=== PATIENT | female | born 1995 | race Caucasian/White ===

== ENCOUNTER 2018-08-29 07:16 | Emergency (ER) | payer OTHER, BC ==
[2018-08-29] MEDS ORDERED: KETOROLAC 30 MG/ML 1 ML VIAL IVP STA (08:26)
[2018-08-29] MEDS ORDERED: SODIUM CHLORIDE 0.9% 1,000 ML IV STA (08:26)
[2018-08-29] MEDS ORDERED: diphenhydrAMINE 50 MG/ML 1 ML VIAL IVP STA (08:26)
[2018-08-29] MEDS ORDERED: ONDANSETRON ODT 4 MG TAB PO STA (08:26)
[2018-08-29] MEDS ORDERED: ORPHENADRINE 30 MG/ML 2 ML VIAL IVP STA (08:27)
[2018-08-29] MEDS ORDERED: ONDANSETRON 4 MG/2 ML VIAL IVP STA (08:28)
--- NOTE | 2018-08-29 08:38 | ED ---
Headache HPI - General Chief Complaint: Headache Stated Complaint: Headache Time Seen by Provider: 08/29/18 08:00 Source: RN notes reviewed, old records reviewed Mode of arrival: ambulatory Limitations: no limitations - History of Present Illness Initial Comments: Patient is a 23-year-old female who presents emergency department today with a headache starting at 4 AM. Patient reports that she had a similar headache to this on . Patient states that she took some ibuprofen and took a bath at that time and her headache went away. She reports that she's had some occasional sore throat and mild illness earlier in the week. She states she has some of those symptoms at this time. She denies any fever. Patient reports that she has had multiple episodes of vomiting this morning. Her headache is worse with loud noises and bright light. She has no history of migraines or significant headache. - Related Data Previous Rx's Medication Instructions Recorded Butalbital/Aspirin/Caffeine 1 cap PO Q4H PRN 3 Days #12 cap 08/29/18 [Fiorinal 50-325-40 MG] Ondansetron Odt [Zofran Odt] 4 mg PO Q8HR PRN #12 tab 08/29/18 Allergies Allergy/AdvReac Type Severity Reaction Status Date / Time No Known Allergies Allergy Verified 08/29/18 07:40 Review of Systems ROS Statement: Those systems with pertinent positive or pertinent negative responses have been documented in the HPI. ROS Other: All systems not noted in ROS Statement are negative. Past Medical History Past Medical History: No Reported History History of Any Multi-Drug Resistant Organisms: None Reported Additional Past Surgical History / Comment(s): Nasal Past Psychological History: Depression Smoking Status: Never smoker Past Alcohol Use History: Occasional Past Drug Use History: None Reported General Exam - General Exam Comments Initial Comments: This is a 23-year-old female. Alert and oriented. Patient appears in no acute distress. Limitations: no limitations General appearance: alert, in no apparent distress Head exam: Present: atraumatic, normocephalic, normal inspection Eye exam: Present: normal appearance, PERRL, EOMI. Absent: scleral icterus, conjunctival injection, periorbital swelling ENT exam: Present: normal exam Neck exam: Present: normal inspection. Absent: tenderness, meningismus, lymphadenopathy Respiratory exam: Present: normal lung sounds bilaterally. Absent: respiratory distress, wheezes, rales, rhonchi, stridor Cardiovascular Exam: Present: regular rate, normal rhythm, normal heart sounds. Absent: systolic murmur, diastolic murmur, rubs, gallop, clicks GI/Abdominal exam: Present: soft, normal bowel sounds. Absent: distended, tenderness, guarding, rebound, rigid Extremities exam: Present: normal inspection, full ROM, normal capillary refill. Absent: tenderness, pedal edema, joint swelling, calf tenderness Back exam: Present: normal inspection Neurological exam: Present: alert, oriented X3, CN II-XII intact Psychiatric exam: Present: normal affect, normal mood Skin exam: Present: warm, dry, intact, normal color. Absent: rash Course Vital Signs 08/29/18 07:23 Temperature 97.7 F Pulse Rate 58 L Respiratory 20 Rate Blood Pressure 128/77 O2 Sat by Pulse 100 Oximetry Medical Decision Making - Lab Data Result diagrams: 08/29/18 08:00 08/29/18 08:00 Lab Results 08/29/18 08/29/18 08/29/18 Range/Units 08:00 08:00 08:00 WBC 5.4 (3.8-10.6) k/uL RBC 4.58 (3.80-5.40) m/uL Hgb 13.1 (11.4-16.0) gm/dL Hct 41.7 (34.0-46.0) % MCV 91.1 (80.0-100.0) fL MCH 28.7 (25.0-35.0) pg MCHC 31.5 (31.0-37.0) g/dL RDW 13.7 (11.5-15.5) % Plt Count 227 (150-450) k/uL Neutrophils % 74 % Lymphocytes % 18 % Monocytes % 5 % Eosinophils % 2 % Basophils % 0 % Neutrophils # 4.0 (1.3-7.7) k/uL Lymphocytes # 1.0 (1.0-4.8) k/uL Monocytes # 0.2 (0-1.0) k/uL Eosinophils # 0.1 (0-0.7) k/uL Basophils # 0.0 (0-0.2) k/uL Sodium 140 (137-145) mmol/L Potassium 4.0 (3.5-5.1) mmol/L Chloride 106 (98-107) mmol/L Carbon Dioxide 24 (22-30) mmol/L Anion Gap 10 mmol/L BUN 12 (7-17) mg/dL Creatinine 0.64 (0.52-1.04) mg/dL Est GFR (CKD-EPI)AfAm >90 (>60 ml/min/1.73 sqM) Est GFR (CKD-EPI)NonAf >90 (>60 ml/min/1.73 sqM) Glucose 100 H (74-99) mg/dL Calcium 9.8 (8.4-10.2) mg/dL Total Bilirubin 0.8 (0.2-1.3) mg/dL AST 28 (14-36) U/L ALT 25 (9-52) U/L Alkaline Phosphatase 52 (38-126) U/L Total Protein 7.5 (6.3-8.2) g/dL Albumin 4.3 (3.5-5.0) g/dL Urine HCG, Qual Not Detected (Not Detectd) - Radiology Data Radiology results: report reviewed Patient is a 23-year-old female who presents emergency murmur today with a headache and vomiting starting at 4 AM this morning, she reports vomiting. She does not describe thunderclap headache. Patient at this time has no neurological deficits. She otherwise appears well. She was given migraine cocktail with improvement of her symptoms. Discussed at this time under deficits, normal lab work and no meningeal signs concerned for meningitis. She was informed that we could do imaging studies such as a CAT scan. With chair decision-making parents and Patient agreed to avoid wasn't Patient to radiation at this time. Discussed that she would have any further headaches or anything persist that she should return and complete imaging at that time. Discussed the Patient to follow-up with primary care provider. We'll discharge the Patient with nausea medication and migraine medication. Disposition Clinical Impression: Migraine Disposition: HOME SELF-CARE Condition: Good Instructions: Acute Headache (ED) Additional Instructions: Patient advised to follow-up with primary care physician within the week. His the medication as prescribed. Return to emergency department if any alarming signs or symptoms occur. If any further headaches or persistent itching worsen please return for reevaluation. Prescriptions: Butalbital/Aspirin/Caffeine [Fiorinal 50-325-40 MG] 1 cap PO Q4H PRN 3 Days #12 cap PRN Reason: Migraine Headache Ondansetron Odt [Zofran Odt] 4 mg PO Q8HR PRN #12 tab PRN Reason: Nausea Is patient prescribed a controlled substance at d/c from ED?: No Referrals: Alejandro Joshi DO [Primary Care Provider] - 1-2 days Time of Disposition: 09:48
[2018-08-29 08:49] LABS: Basophils % (A) 0 %; Eosinophils # (A) 0.1 k/uL (0-0.7); Eosinophils % (A) 2 %; HCT 41.7 % (34.0-46.0); HGB 13.1 gm/dL (11.4-16.0); Lymphocytes % (A) 18 %; MCH 28.7 pg (25.0-35.0); MCHC 31.5 g/dL (31.0-37.0); MCV 91.1 fL (80.0-100.0); Monocytes # (A) 0.2 k/uL (0-1.0); Monocytes % (A) 5 %; Neutrophils % (A) 74 %; Platelet Count 227 k/uL (150-450); RBC 4.58 m/uL (3.80-5.40); RDW 13.7 % (11.5-15.5); WBC 5.4 k/uL (3.8-10.6)
[2018-08-29 09:01] LABS: ALT 25 U/L (9-52); AST 28 U/L (14-36); Albumin 4.3 g/dL (3.5-5.0); Alkaline Phosphatase 52 U/L (38-126); Anion Gap 10 mmol/L; Blood Urea Nitrogen 12 mg/dL (7-17); Calcium 9.8 mg/dL (8.4-10.2); Carbon Dioxide 24 mmol/L (22-30); Chloride 106 mmol/L (98-107); Glucose 100 mg/dL (74-99); Sodium 140 mmol/L (137-145); Total Bilirubin 0.8 mg/dL (0.2-1.3); Total Protein 7.5 g/dL (6.3-8.2)
[2018-08-29 09:44] LABS: Amorphous Sediment,Urine Moderate /hpf; Appearance,Urine Turbid (Clear); Bilirubin,Urine Negative (Negative); Blood,Urine Small (Negative); Color,Urine Yellow; Glucose,Urine (UA) Negative (Negative); Ketones,Urine Negative (Negative); Leukocyte Esterase,Urine Negative (Negative); Mucus,Urine Few /hpf; Nitrite,Urine Negative (Negative); Protein,Urine Trace (Negative); Squamous Epithelial Cell,Urine 1 /hpf (0-4); Urobilinogen,Urine <2.0 mg/dL (<2.0)
[2018-08-29] MEDS ORDERED: ONDANSETRON 4 MG ODT STARTER PACK 2 TAB BTL PO STA (09:50)
[2018-08-29 10:04] VITALS: BP 117/68; PULSE 55; RESP 16; TEMP 98.1
== END 2018-08-29 09:45 | disposition home or self-care (01) ==
LOC: EC 07:16
DX: G43.909 Migraine, unspecified, not intractable, without status migrainosus (principal); J02.9 Acute pharyngitis, unspecified
CPT/HCPCS: 99284; 96374; 96375 ×3; 96361; 36415; 80053; 85025; 81001; 81025; J1200; J2360; J2405; J1885; S0119

== ENCOUNTER → 2019-07-22 | Outpatient (CLI) | payer OTHER ==
[2019-07-22 09:09] VITALS: BP 130/86; PULSE 74; RESP 16; TEMP 98; BMI 22.7
--- NOTE | 2019-07-22 10:57 | P.HPOB ---
History of Present Illness H&P Date: 07/22/19 Chief Complaint: The patient is here for her routine gynecologic exam. This is a 24-year-old G0 with an LMP of 07/21/2019. The patient is currently abstaining from sexual intercourse, but will be going back down to [place] next month and will possibly be sexually active with her boyfriend who lives in [place]. She had been using oral contraception, but discontinued it since she moved back to [place]. She is requesting an IUD for control. She states she has read up on the IUD and the various types of IUDs. She is interested in something other than systemic hormones for control. Menses are regular every month. She is without gynecologic complaints. Review of Systems The patient's weight has been stable over the last year. About 2-3 years ago she did gain about 30 pounds but has lost most of that weight. She has changed her diet and no has become a vegetarian following a vegan diet. She denies respiratory, cardiac, or G.I. problems. 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 She has no other history of STDs. History of Any Multi-Drug Resistant Organisms: None Reported Additional Past Surgical History / Comment(s): Rhinoplasty for deviated septum. Past Psychological History: Depression Smoking Status: Never smoker Past Alcohol Use History: Occasional (One per day) Past Drug Use History: None Reported Additional History: She is single and has been with her boyfriend since about 2014. Her boyfriend lives in [place] and she now resides in [place]. 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 - Past Family History Father Family Medical History: Diabetes Mellitus Aunt Family Medical History: Cancer Additional Family Medical History / Comment(s): Breast cancer Medications and Allergies Home Medications Medication Instructions Recorded Confirmed Type Butalbital/Aspirin/Caffeine 1 cap PO Q4H PRN 3 Days #12 cap 08/29/18 07/22/19 Rx [Fiorinal 50-325-40 MG] Ondansetron Odt [Zofran Odt] 4 mg PO Q8HR PRN #12 tab 08/29/18 07/22/19 Rx Cyanocobalamin (Vitamin B-12) 1,000 mcg PO DAILY 07/22/19 07/22/19 History [Vitamin B-12] Allergies Allergy/AdvReac Type Severity Reaction Status Date / Time No Known Allergies Allergy Verified 07/22/19 09:02 Exam Vital Signs Temp Pulse Resp BP Pulse Ox 07/22/19 09:06 98.0 F 74 16 130/86 98 Intake and Output 07/21/19 07/22/19 07/22/19 22:59 06:59 14:59 Other: Weight 73.936 kg Height 5 feet 11 inches, weight 163 pounds, BMI 22.7. This is a well-developed well-nourished white female who is alert and oriented times 3 in no acute distress. HEENT: Within normal limits. NECK: Supple without mass or thyromegaly. CHEST AND LUNGS: Clear to auscultation. HEART: Regular rate and rhythm. BREASTS: Are without mass or discharge. AXILLARY EXAM: Negative for adenopathy. BACK: Negative for CVA tenderness. ABDOMEN: Soft, nontender, without palpable masses. PELVIC EXAM: External genitalia reveals some excess success hymenal tissue which is attached to the posterior periurethral area and to the left introitus. This is stable from her previous exams. It measures approximately 3.5 cm and appears benign. Cervix and vagina appear normal with small menstrual blood. There is no unusual discharge. There is no cervical motion tenderness. There is no evidence of prolapse. The uterus is midposition, nongravid size and nontender. There are no palpable adnexal masses or tenderness. RECTAL EXAM: Deferred EXTREMITIES: Nontender. IMPRESSION: 1. 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 Otherwise normal gynecologic exam. 2. Patient is requesting a hormone coated IUD. PLAN: 1. Pap smear was performed. 2. Self breast awareness was discussed with the patient. 3. GC and Chlamydia testing was obtained from the cervix. 4. We had a long discussion regarding control options. We have decided to restart the control pills. She has several packs of Loryna control pills which she has taken in the past. She states they are not . She will start taking them today since her period has just started. We will schedule her for an appointment at [facility] for Mirena IUD placement. We will try to schedule this at a time when she is on her menstrual period. 5. STD prevention was discussed. I have stressed the importance of limiting sexual partners and I have recommended that she strongly consider condom use if she is sexually active. 6. She was advised to return in one year for her annual well woman exam.
[2019-07-23 13:31] LABS: C. trachomatis,PCR Negative (Neg,Equiv); Chlamydia trachomatis Source Cervix; N. gonorrhoeae,PCR Negative (Neg,Equiv); Neisseria Source Cervix
== END ==
LOC: WWCWWP 08:55
PROVIDERS: ATTEND Obstetrics & Gynecology
DX: Z11.3 Encounter for screening for infections with a predominantly sexual mode of transmission (principal)
CPT/HCPCS: 87491; 87591

== ENCOUNTER → 2019-08-07 | Outpatient (CLI) | payer OTHER ==
[2019-08-07 08:08] VITALS: BP 113/76; PULSE 61; RESP 18; TEMP 98.1
--- NOTE | 2019-08-07 08:27 | P.PN ---
Progress Note - Text Progress Note Date: 08/07/19 The patient was here for her annual examination on 07/22/2019 and Pap smear was performed. The Pap smear came back as unsatisfactory. The patient is here for a repeat Pap smear. Physical exam: Vital signs blood pressure 113/76, height 5 feet 11 inches, weight 163 pounds, temperature 98.1, pulse 61, pulse oximeter 98%. This is a well-developed well-nourished white female who is alert and oriented 3 in no acute distress. Cervix and vagina appear normal. There is no unusual discharge. The cervix was slightly friable upon doing the Pap smear. Impression: Previous unsatisfactory Pap smear. Plan: Pap smear was performed.
--- NOTE | 2019-08-18 09:15 | P.PN ---
Progress Note - Text Progress Note Date: 08/18/19 OUTPATIENT FOLLOW-UP NOTE TEST(S)/RESULTS: the patient had a negative Pap smear done on 08/07/2019. GC and Chlamydia screening were negative on 07/22/2019. METHOD OF NOTIFICATION: a message was left on the patient's voice mail with these results. PATIENT COMMENTS: DIAGNOSIS: negative Pap smear and negative GC and chlamydia screening. DISCUSSION: PLAN: She was advised to return in one year for her annual well woman exam.
== END | disposition home or self-care (01) ==
LOC: WWCWWP 07:58
PROVIDERS: ATTEND Obstetrics & Gynecology
DX: Z53.9 Procedure and treatment not carried out, unspecified reason (principal)

== ENCOUNTER → 2022-01-20 | Outpatient (CLI) | payer OTHER ==
[2022-01-20 14:32] LABS: Basophils # (A) 0.04 X 10*3/uL (0.00-0.10); Basophils % (A) 0.7 %; Eosinophils # (A) 0.25 X 10*3/uL (0.04-0.35); Eosinophils % (A) 4.7 %; HCT 40.3 % (37.2-46.3); Immature Grans, Automated 0.2 %; Lymphocytes # (A) 1.88 X 10*3/uL (0.90-5.00); Lymphocytes % (A) 35.1 %; MCH 31.6 pg (27.0-32.0); MCHC 32.3 g/dL (32.0-37.0); MCV 98.1 fL (80.0-97.0); Mean Platelet Volume 11.6 fL (9.5-12.2); Monocytes % (A) 9.3 %; NRBC Per 100 WBC 0 /100 WBCS (0.0-0.0); Neutrophils # (A) 2.67 X 10*3/uL (1.80-7.70); Platelet Count 279 X 10*3/uL (140-440); RBC 4.11 X 10*6/uL (4.10-5.20); RDW 13.1 % (11.5-14.5); WBC 5.35 X 10*3/uL (4.50-10.00)
== END | disposition home or self-care (01) ==
LOC: LABPAT 08:02
PROVIDERS: ATTEND Obstetrics & Gynecology
DX: Z01.812 Encounter for preprocedural laboratory examination (principal); N89.8 Other specified noninflammatory disorders of vagina
CPT/HCPCS: 85025

== ENCOUNTER 2022-01-30 06:17 | Day surgery (SDC) | payer OTHER ==
[2022-01-25 14:57] VITALS: BMI 23.2
[~2022-01-30 06:17] MED LIST: DEXAMETHASONE SOD PHOSPHATE 4 MG/ML 1 ML VIAL IV ONE; LACTATED RINGERS 1,000 ML IV SCH; LIDOCAINE 1% (10MG/ML) FOR IV START INTRADERMA PRN; METOCLOPRAMIDE 5 MG/ML 2 ML VIAL IVP PRN; ONDANSETRON 4 MG/2 ML VIAL IVP ONE; SCOPOLAMINE 1 MG/72 HR PATCH TRANSDERM ONE
[2022-01-30] MEDS ORDERED: fentaNYL (PF) 50 MCG/ML 2 ML AMP ONE (08:29)
[2022-01-30] MEDS ORDERED: KETOROLAC 15 MG/ML 1 ML VIAL ONE (08:29)
[2022-01-30] MEDS ORDERED: MIDAZOLAM 2 MG/2 ML VIAL ONE (08:29)
[2022-01-30] MEDS ORDERED: GLYCOPYRROLATE 0.2 MG/ML 2 ML VIAL ONE (08:29)
[2022-01-30] MEDS ORDERED: ROCURONIUM 10 MG/ML (5 ML VIAL) IV ONE (08:29)
[2022-01-30] MEDS ORDERED: LIDOCAINE 2% INJ 20 MG/ML (2 ML VIAL) ONE (08:29)
[2022-01-30] MEDS ORDERED: PROPOFOL 10 MG/ML 20 ML VIAL IV ONE (08:29)
[2022-01-30] MEDS ORDERED: NEOSTIGMINE 1 MG/ML 10 ML VIAL ONE (08:29)
[2022-01-30] MEDS ORDERED: BUPIVACAINE (PF) 0.5% 30 ML VIAL SQ ONE ×2 (08:50)
--- NOTE | 2022-01-30 09:20 | P.OP ---
Date of Procedure: 01/30/22 Preoperative Diagnosis: 1. intrauterine device 2. hymeneal remnant number 3. desires permanent sterility Postoperative Diagnosis: Same Procedure(s) Performed: Removal of intrauterine device, resection of hymeneal remnant, laparoscopic bilateral tubal occlusion with Filshie clips. Anesthesia: JUANA Surgeon: Rtuhy Hernandez Estimated Blood Loss (ml): 5 IV fluids (ml): 700 Urine output (ml): 50 Pathology: other (Hymeneal remnant) Condition: stable Disposition: PACU Indications for Procedure: Patient desires permanent sterility and removal of intrauterine device. She has a painful a hymeneal remnant. Operative Findings: Thickened and epithelialized hymeneal remnant extending from the 10:00 to the 2 o'clock position superiorly with perforation below the urethra. On laparoscopy she has normal-appearing intra-abdominal anatomy. Specifically normal bilateral fallopian tubes, ovaries and uterus. Appendix was not visualized. Description of Procedure: After the patient was met in the preoperative holding area and all questions were answered, she was taken the operating room where anesthetic was administered without incident. She underwent appropriate timeout protocol. The bladder was drained for approximately 50 mL of clear urine. Exam under anesthetic was undertaken and thickened, epithelialized and irregular shaped tissue noted to be extending from the 2:00 to the 10 o'clock position consistent with a hymeneal remnant. There is perforation below the urethra. The Bovie electrocautery was utilized to excise this bilaterally. Tissue specimen was sent for pathology. Weighted speculum was then placed in the vagina and the cervix was visualized. IUD strings are visualized. These were grasped with a ring forcep and the IUD was removed intact without difficulty. Tenaculum was then placed on the cervix. Paracervical block was placed. [place] uterine manipulator was placed. Instruments were then otherwise removed from the vagina. Attention was then turned to the abdomen. Gloves were changed. An infraumbilical 5 mm skin incision was made. The anterior abdominal wall was grasped and the blade less optical trocar was utilized to introduce the 5 mm camera under direct visualization without difficulty. Patient was then placed in Trendelenburg. Under direct visualization 7 mm blade less suprapubic port was placed. Abdomen insufflated to 15 mm with CO2 gas. The bowel was then swept out of the pelvis. Normal pelvic anatomy as described was noted. The Filshie clip refrigeration specialist was then introduced. The left fallopian tube was identified positively and carried out to the fimbriated ends. The Filshie clip was then applied completely transecting the tube in the mid ampullary portion. Similarly the right fallopian tube was positively identified and carried out to its fimbriated end. A Filshie clip was applied on the mid ampullary portion completely transecting the fallopian tube. Under direct visualization the superpubic port was removed. The abdomen was desufflated of CO2 gas and instrument's removed. Skin incision were closed using 3-0 Vicryl. Incisions infused with quarter percent Marcaine. The acorn uterine manipulator was removed and the hymeneal resection sites reinspected and noted to be hemostatic. Bacitracin ointment was applied. The patient was then awoken from anesthetic without incident and transported recovery area in good condition. Counts reported to me as correct by the operating room staff.
[2022-01-30] MEDS: HYDROmorphone 0.5 MG/0.5 ML SYRINGE IVP PRN ×2 (09:27→09:41)
[2022-01-30 09:29] VITALS: TEMP 97
[2022-01-30 10:14] VITALS: RESP 18
[2022-01-30 10:35] VITALS: BP 96/59; PULSE 61
== END 2022-01-30 11:10 | disposition home or self-care (01) ==
LOC: OR 06:17
PROVIDERS: ATTEND Obstetrics & Gynecology
DX: Z30.2 Encounter for sterilization (principal); F39 Unspecified mood [affective] disorder; F32.A Depression, unspecified; F90.9 Attention-deficit hyperactivity disorder, unspecified type; Z98.890 Other specified postprocedural states; Z30.432 Encounter for removal of intrauterine contraceptive device; Z82.49 Family history of ischemic heart disease and other diseases of the circulatory system; Z83.3 Family history of diabetes mellitus; Z81.8 Family history of other mental and behavioral disorders; Z84.1 Family history of disorders of kidney and ureter; Z84.89 Family history of other specified conditions; Z87.891 Personal history of nicotine dependence; Z79.3 Long term (current) use of hormonal contraceptives; Z79.899 Other long term (current) drug therapy
CPT/HCPCS: 81025; 88304; 56700; 58301; 58671; J2250; J1100; J2710; J0690; J2405; J3010; J1885; J2704; J1170; J2001

== ENCOUNTER → 2024-01-16 | Outpatient (CLI) | payer OTHER ==
[2024-01-16 18:05] LABS: Basophils # (A) 0.05 X 10*3/uL (0.00-0.10); Basophils % (A) 0.6 %; Eosinophils # (A) 0.18 X 10*3/uL (0.04-0.35); Eosinophils % (A) 2.1 %; HCT 41.2 % (37.2-46.3); HGB 13.4 g/dL (12.0-15.0); Lymphocytes # (A) 1.71 X 10*3/uL (0.90-5.00); Lymphocytes % (A) 19.7 %; MCH 31.1 pg (27.0-32.0); MCHC 32.5 g/dL (32.0-37.0); MCV 95.6 FL (80.0-97.0); Mean Platelet Volume 11.8 FL (9.5-12.2); Monocytes # (A) 0.58 X 10*3/uL (0.20-1.00); Monocytes % (A) 6.7 %; NRBC Per 100 WBC 0 X 10*3/uL (0.00-0.01); Neutrophils # (A) 6.16 X 10*3/uL (1.80-7.70); Neutrophils % (A) 70.7 %; Platelet Count 282 X 10*3/uL (140-440); RBC 4.31 X 10*6/uL (4.10-5.20); RDW 12.3 % (11.5-14.5)
[2024-01-16 18:41] LABS: ALT 13 U/L (8-44); AST 17 U/L (13-35); Albumin 4.6 g/dL (3.8-4.9); Albumin/Globulin Ratio 1.84 Ratio (1.60-3.17); Alkaline Phosphatase 53 U/L (41-126); Blood Urea Nitrogen 10.5 mg/dL (9.0-27.0); Calcium 9.6 mg/dL (8.7-10.3); Carbon Dioxide 22.8 mmol/L (21.6-31.8); Chloride 101 mmol/L (96-109); Globulin 2.5 g/dL (1.6-3.3); Glucose 90 mg/dL (70-110); Potassium 4.4 mmol/L (3.5-5.5); Sodium 138 mmol/L (135-145); T4, Free (Free Thyroxine) 1.62 ng/dL (0.80-1.80); Total Bilirubin 0.4 mg/dL (0.3-1.2); Total Protein 7.1 g/dL (6.2-8.2)
== END | disposition home or self-care (01) ==
LOC: LABWHC1 11:48
PROVIDERS: ATTEND Family Medicine
DX: R53.83 Other fatigue (principal)
CPT/HCPCS: 36415; 80053; 82306; 82607; 82746; 84439; 84443; 85025

== ENCOUNTER 2024-02-17 13:03 | Inpatient (IN) | payer OTHER ==
--- NOTE | 2024-02-17 13:33 | ED ---
General Adult HPI - General Source: patient, RN notes reviewed, old records reviewed Mode of arrival: ambulatory <Macario Lange - Last Filed: 02/17/24 13:29> <Thomas Rosales - Last Filed: 02/17/24 16:53> - General Chief complaint: Psychiatric Symptoms Stated complaint: mental health Time Seen by Provider: 02/17/24 13:16 - History of Present Illness Initial comments: 28-year-old female history of anxiety and depression, suicidal thoughts. Patient denies suicide attempt or specific plan but she states that her depression and anxiety have been significantly worse and she has been unable to get urgent outpatient evaluation for this. (Macario Lange) - Related Data Home Medications Medication Instructions Recorded Confirmed valACYclovir HCL [Valtrex] 2,000 mg PO Q12H PRN 01/25/22 02/17/24 Cephalexin [Keflex] 500 mg PO Q6H PRN 02/17/24 02/17/24 LORazepam 0.5 mg PO BID PRN 02/17/24 02/17/24 Sertraline [Zoloft] 25 mg PO DAILY 02/17/24 02/17/24 Allergies Allergy/AdvReac Type Severity Reaction Status Date / Time amphetamine [From Adderall] AdvReac Rapid Verified 02/17/24 16:24 Heart Rate dextroamphetamine AdvReac Rapid Verified 02/17/24 16:24 [From Adderall] Heart Rate Review of Systems ROS Other: All systems not noted in ROS Statement are negative. <Macario Lange - Last Filed: 02/17/24 13:29> ROS Other: All systems not noted in ROS Statement are negative. <Thomas Rosales - Last Filed: 02/17/24 16:53> ROS Statement: Those systems with pertinent positive or pertinent negative responses have been documented in the HPI. 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 She has no other history of STDs. History of Any Multi-Drug Resistant Organisms: None Reported Past Surgical History: Tubal Ligation Additional Past Surgical History / Comment(s): Rhinoplasty for deviated septum. Past Psychological History: Depression Smoking Status: Vaper Past Alcohol Use History: Occasional Past Drug Use History: None Reported - Past Family History Father Family Medical History: Diabetes Mellitus Aunt Family Medical History: Cancer Additional Family Medical History / Comment(s): Breast cancer <Macario Lange Dianna - Last Filed: 02/17/24 13:29> General Exam General appearance: alert, anxious Head exam: Present: atraumatic, normocephalic Eye exam: Present: normal appearance, PERRL ENT exam: Present: normal exam Neck exam: Present: normal inspection Respiratory exam: Present: normal lung sounds bilaterally. Absent: respiratory distress, wheezes Cardiovascular Exam: Present: regular rate, normal rhythm GI/Abdominal exam: Present: soft. Absent: distended, tenderness Neurological exam: Present: alert, oriented X3, CN II-XII intact. Absent: motor sensory deficit Psychiatric exam: Present: depressed, anxious, suicidal ideation Skin exam: Present: warm, dry, intact. Absent: cyanosis <Macario Lange Dianna - Last Filed: 02/17/24 13:29> Course Vital Signs 02/17/24 13:04 Temperature 98.3 F Pulse Rate 105 H Respiratory 18 Rate Blood Pressure 140/92 O2 Sat by Pulse 97 Oximetry Medical Decision Making <JosesanjivlashonMacario Dianna - Last Filed: 02/17/24 13:29> <Thomas Rosales - Last Filed: 02/17/24 16:53> - Medical Decision Making Was pt. sent in by a medical professional or institution ([facility], [facility], urgent care, hospital, or assisted...) When possible be specific @ -No Did you speak to anyone other than the patient for history (EMS, parent, family, police, friend...)? What history was obtained from this source @ -No Did you review nursing and triage notes (agree or disagree)? Why? @ -I reviewed and agree with nursing and triage notes Were old charts reviewed (outside hosp., previous admission, EMS record, old EKG, old radiological studies, urgent care reports/EKG's, assisted records)? Report findings @ -No old charts were reviewed Differential Mental Health Depression, anxiety, bipolar, psychosis, schizophrenia, borderline personality, situational depression, adjustment disorder, behavioral disorder, brain tumor, malingering, substance abuse, encephalopathy, medication reaction, dementia, hypothyroidism, degenerative neurologic disorder, lupus.... This is not meant to be all-inclusive list EKG interpreted by me (3pts min.). @ -As above X-rays interpreted by me (1pt min.). @ -None done CT interpreted by me (1pt min.). @ -None done U/S interpreted by me (1pt. min.). @ -None done What testing was considered but not performed or refused? (CT, X-rays, U/S, labs)? Why? @ -None What meds were considered but not given or refused? Why? @ -None Did you discuss the management of the patient with other professionals (professionals i.e. , PA, HOUSING [employer], lab, RT, psych nurse, neonatal social worker, hotel room attendant, teacher, training officer, high risk case manager)? Give summary @ -No Was smoking cessation discussed for >3mins.? @ -No Was critical care preformed (if so, how long)? @ -No Were there social determinants of health that impacted care today? How? (Homelessness, low income, unemployed, alcoholism, drug addiction, t ransportation, low edu. Level, literacy, decrease access to med. care, penitentiary, rehab)? @ -No Was there de-escalation of care discussed even if they declined (Discuss DNR or withdrawal of care, Hospice)? DNR status @ -No What co-morbidities impacted this encounter? (DM, HTN, Smoking, COPD, CAD, Cancer, CVA, ARF, Chemo, Hep., AIDS, mental health diagnosis, sleep apnea, morbid obesity)? @ -[Anxiety, depression Was patient admitted / discharged? Hospital course, mention meds given and route, prescriptions, significant lab abnormalities, going to OR and other pertinent info. @Patient medically cleared awaiting EPS evaluation Undiagnosed new problem with uncertain prognosis? @ -No Drug Therapy requiring intensive monitoring for toxicity (Heparin, Nitro, Insulin, Cardizem)? @ -No Were any procedures done? @ -No Diagnosis/symptom? @ -Default Acute, or Chronic, or Acute on Chronic? @ -Default Uncomplicated (without systemic symptoms) or Complicated (systemic symptoms)? @ -Default Side effects of treatment? @ -No Exacerbation, Progression, or Severe Exacerbation? @ -No Poses a threat to life or bodily function? How? (Chest pain, [place], HI, pneumonia, PE, COPD, DKA, ARF, appy, cholecystitis, CVA, Diverticulitis, Homicidal, Suicidal, threat to staff... and all critical care pts) @ -No (Macario Lange) I did discuss case with mental health nurse with plan for admission. Patient will be admitted for psychiatric care. Diagnosis: Anxiety, depression Acute on chronic, acute on chronic (Thomas Rosales) - Lab Data Lab Results 02/17/24 Range/Units 15:24 Urine Opiates Screen Not Detected (NotDetected) Ur Oxycodone Screen Not Detected (NotDetected) Urine Methadone Screen Not Detected (NotDetected) Ur Barbiturates Screen Not Detected (NotDetected) U Tricyclic Antidepress Not Detected (NotDetected) Ur Phencyclidine Scrn Not Detected (NotDetected) Ur Amphetamines Screen Not Detected (NotDetected) U Methamphetamines Scrn Not Detected (NotDetected) U Benzodiazepines Scrn Not Detected (NotDetected) Urine Cocaine Screen Not Detected (NotDetected) U Marijuana (THC) Screen Not Detected (NotDetected) Disposition <Macario Lange - Last Filed: 02/17/24 13:29> Is patient prescribed a controlled substance at d/c from ED?: No Time of Disposition: 16:53 <Thomas Rosales - Last Filed: 02/17/24 16:53> Clinical Impression: Depression, Acute anxiety Disposition: TRANSFER TO PSYCH HOSP/UNIT Referrals: Alejandro Joshi DO [Primary Care Provider] - 1-2 days
[2024-02-17 15:48] LABS: Amphetamine Screen,Urine Not Detected (NotDetected); Barbiturate Screen,Urine Not Detected (NotDetected); Benzodiazepines Screen,Urine Not Detected (NotDetected); Cocaine Screen,Urine Not Detected (NotDetected); Methadone Screen, Urine Not Detected (NotDetected); Opiate Screen,Urine Not Detected (NotDetected); Oxycodone Screen, Urine Not Detected (NotDetected); Phencyclidine Screen,Urine Not Detected (NotDetected); Tricyclic Antidepressant,Urine Not Detected (NotDetected); Urn Cannabinoid Scrn Not Detected (NotDetected)
[2024-02-17] MEDS: LORazepam 1 MG TAB PO STA (20:46)
[2024-02-17] MEDS: NICOTINE 14MG/24HR PATCH TRANSDERM STA (20:47)
[2024-02-17] MEDS ORDERED: valACYclovir HCL 1,000 MG TABLET PO PRN (21:19)
[2024-02-17] MEDS ORDERED: IBUPROFEN 600 MG TAB PO PRN (21:23)
[2024-02-17] MEDS ORDERED: MAG HYDROX/AL HYDROX/SIMETH 355 ML BOTTLE PO PRN (21:23)
[2024-02-17] MEDS ORDERED: MAGNESIUM HYDROXIDE 2,400 MG/30 ML CUP PO PRN (21:23)
[2024-02-17] MEDS ORDERED: haloperidoL 5 MG TAB PO PRN (21:23)
[2024-02-17] MEDS ORDERED: LORazepam 2 MG/ML INJ IM PRN (21:23)
[2024-02-17] MEDS ORDERED: LORazepam 1 MG TAB PO PRN (21:23)
[2024-02-17] MEDS ORDERED: HALOPERIDOL LACTATE 5 MG/ML 1 ML VIAL IM PRN (21:23)
[2024-02-17] MEDS ORDERED: ACETAMINOPHEN TAB 325 MG TAB PO PRN (21:23)
[2024-02-17] MEDS ORDERED: QUEtiapine 50 MG TAB PO PRN (21:29)
[2024-02-17 21:47] LABS: Appearance,Urine Clear (Clear); Bilirubin,Urine Negative (Negative); Blood,Urine Negative (Negative); Color,Urine Colorless; Glucose,Urine (UA) Negative (Negative); Ketones,Urine Negative (Negative); Leukocyte Esterase,Urine Negative (Negative); Nitrite,Urine Negative (Negative); Protein,Urine Negative (Negative); Specific Gravity,Urine 1.007 (1.001-1.035); Urobilinogen,Urine <2.0 mg/dL (<2.0)
[2024-02-18] MEDS: SERTRALINE 25 MG TAB PO SCH (08:51)
[2024-02-18] MEDS: NICOTINE 14MG/24HR PATCH TRANSDERM SCH (08:51)
--- NOTE | 2024-02-18 10:26 | P.HP ---
Psychiatric H&P - . H&P Date: 02/18/24 History & Physical: Allergies Allergy/AdvReac Type Severity Reaction Status Date / Time amphetamine [From Adderall] AdvReac Rapid Verified 02/17/24 21:33 Heart Rate dextroamphetamine AdvReac Rapid Verified 02/17/24 21:33 [From Adderall] Heart Rate Vital Signs Temp 97.5 F L 02/17/24 22:43 Pulse 57 L 02/17/24 22:43 Resp 14 02/17/24 22:43 BP 109/68 02/17/24 22:43 Pulse Ox 99 02/17/24 22:43 FiO2 Intake & Output 02/17/24 02/18/24 02/18/24 18:59 06:59 18:59 Weight 74.843 kg 74.843 kg Laboratory Last Values Urine Color Colorless 02/17/24 21:35 Urine Appearance Clear (Clear) 02/17/24 21:35 Urine pH 5.0 (5.0-8.0) 02/17/24 21:35 Ur Specific [place] 1.007 (1.001-1.035) 02/17/24 21:35 Urine Protein Negative (Negative) 02/17/24 21:35 Urine Glucose (UA) Negative (Negative) 02/17/24 21:35 Urine Ketones Negative (Negative) 02/17/24 21:35 Urine Blood Negative (Negative) 02/17/24 21:35 Urine Nitrite Negative (Negative) 02/17/24 21:35 Urine Bilirubin Negative (Negative) 02/17/24 21:35 Urine Urobilinogen <2.0 mg/dL (<2.0) 02/17/24 21:35 Ur Leukocyte Esterase Negative (Negative) 02/17/24 21:35 Urine HCG, Qual Not Detected (Not Detectd) 02/17/24 21:35 Urine Opiates Screen Not Detected (NotDetected) 02/17/24 15:24 Ur Oxycodone Screen Not Detected (NotDetected) 02/17/24 15:24 Urine Methadone Screen Not Detected (NotDetected) 02/17/24 15:24 Ur Barbiturates Screen Not Detected (NotDetected) 02/17/24 15:24 U Tricyclic Antidepress Not Detected (NotDetected) 02/17/24 15:24 Ur Phencyclidine Scrn Not Detected (NotDetected) 02/17/24 15:24 Ur Amphetamines Screen Not Detected (NotDetected) 02/17/24 15:24 U Methamphetamines Scrn Not Detected (NotDetected) 02/17/24 15:24 U Benzodiazepines Scrn Not Detected (NotDetected) 02/17/24 15:24 Urine Cocaine Screen Not Detected (NotDetected) 02/17/24 15:24 U Marijuana (THC) Screen Not Detected (NotDetected) 02/17/24 15:24 SARS-CoV-2 (PCR) Not Detected (Not Detectd) 02/17/24 17:24 02/18/24 08:56 IDENTIFYING DATA: Patient is a 28 year old female, lives with her mom. No children. Not . 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 HPI: Patient presented to the hospital on 02/16. As per EPS note, "Cl sitting in bed A/O x4 brought self in due to increased manic symptoms, SI w increased thoughts of plans. Cl reports they have struggled with periods like this since their teen years and that things have been progressively getteing worse. Cl reports reaching out to PCP and [facility] to get help, and as recent as today speaking with [facility] regarding not feeling safe and concerned about where their mental health was headed. 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 Cl states " The reason I haven't done anything is because I don't want to do that to my Mom. She always tells me I am the best decision she ever made, and I think well what if your best decision doesn't feel like they should be here, alive." Cl reports having intrusive thoughts at times, or "disassociating to the point where I couldn't tell you what I did at work." Cl also discussed when "the manic" subsides they experience loss of interest, hypersomnia, depression, loss of energy, motivation, and crying spells. Judgement/insight/impulse control : fair. ADLS: fair to good Sleep/Yosi: poor/fair Medical issues: none reported Medications: previously on Zoloft but doesn't feel it was helping. Hx of MH tx: open with [facility] intake only. Hx of in pat: INITIAL Hx of SYD: Cl reports increased alcohol use and occasional THC. Hx of in pat rehab: none reported. Fam hx: Maternal: depression/anxiety Paternal: unknown. Hx of trauma: none reported. Hx of legal: none current. Denies HI/DARRON/DEL". Today, patient states she felt that she was having a major panic attack, and the suicidal thoughts were flooding in. She states that she has had these problems since she has been 16 years old. She states that she is always having anxiety. She has panic attacks once a month, or every other month. She states that that she was having side effects from the Zoloft. She states that the suicidal thoughts come and go, and she has thought about running her car into a utility pole, or stepping out into traffic. She has has poor concentration. States that she does not have a regular sleep pattern, and will sometimes stay up all night, and the entire next day, or only sleep a couple h ours. She claims her appetite is hit or miss, not very well. She claims to have not slept well in the past several weeks. States she has manic episodes that include sleeplessness, over spending, and sexual episodes. Patient endorses suicidal ideations, denies homicidal ideations intent or plan. At this time patient denies any auditory or visual hallucinations. Patient denies any flight of ideas racing thoughts and increased in goal directed behavior. Patient admits to using a cape. PAST PSYCHIATRIC HISTORY: Patient states that she has had an intake at [facility], and had an appt with an [facility] last Saturday, however, they called and cancelled the appointment. Primary Dr started her on Zoloft. Has been on Lexapro in 2020. Patient denies any previous psychiatric hospitalizations. Patient denies any history of suicide attempts in the past. PMH:As per ER note ALLERGIES: as per EMR CHEMICAL DEPENDENCY HISTORY: as per HPI FAMILY PSYCHIATRIC/SUBSTANCE USE HISTORY: mom suffers from anxiety and panic attacks. Uncle completed suicide. SOCIAL HISTORY: Patient was born and raised in [place], [place]. Has been to some college, single, no children. Lives with her mother in a house. 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 Denies any legal problems. MENTAL STATUS EXAM: General Appearance: Patient appears to be stated age is alert, directable, and attempts to cooperate. Patient appears to have fair hygiene and grooming. Dressed casually, longer hair, wearing glasses. Behavior: Patient is seated without any agitated behavior. Patient visibly appears depressed. Speech: Patient's speech is fluent and nonpressured. Mood/Affect: Patient reports their mood is depressed and anxious, affect is congruent and constricted. Suicidality/Homicidality: Patient denies having any homicidal ideation intent or plan. Endorses suicidal ideations intent or plan Perceptions: Patient denies any visual hallucinations and denies any auditory hallucinations Though content/process: There is no evidence of any delusional thought content and thought process is linear and goal-directed. Memory and concentration: AOX3, grossly intact for the purposes of this session. Can spell "WORLD" backwards Judgment and insight: poor STRENGTHS/WEAKNESSES: strength is that patient is resilient. Weakness is that patient has poor judgment and is impulsive INTELLECT: average IMPRESSIONS: bipolar disorder, currently episode depressed panic disorder nicotine dependance PLAN: -Patient is admitted under voluntary status to [facility]HU for stabilization of psychiatric symptoms and safety. Patient has signed adult voluntary form and m edication consent and is placed in patient's chart. -Medications : Will start patient on Seroquel 50mg qhs for mood stabilization, d/c zoloft, add Cymbalta 20mg daily for depression/anxiety -Ativan and Haldol PRN for agitation/aggression -Patient was informed of the risks, benefits and side effects of the medication and patient verbally consented to taking the medications. -Internal Medicine consult to perform medical evaluation and physical. -NRT - nicotine patch -SW on board for discharge planning. Encourage patient to participate in groups to work on coping skills. 02/18/24 10:00 02/18/24 10:23
[2024-02-18 13:50] LABS: Basophils % (A) 1 %; Eosinophils # (A) 0.2 k/uL (0-0.7); Eosinophils % (A) 3 %; HCT 43.9 % (34.0-46.0); HGB 14.1 gm/dL (11.4-16.0); Lymphocytes # (A) 1.9 k/uL (1.0-4.8); Lymphocytes % (A) 31 %; MCH 31.4 pg (25.0-35.0); MCV 98.1 fL (80.0-100.0); Mean Platelet Volume 9.1; Monocytes # (A) 0.4 k/uL (0-1.0); Monocytes % (A) 6 %; Neutrophils # (A) 3.5 k/uL (1.3-7.7); Neutrophils % (A) 58 %; Platelet Count 268 k/uL (150-450); RBC 4.47 m/uL (3.80-5.40); RDW 12.5 % (11.5-15.5); WBC 6.1 k/uL (3.8-10.6)
[2024-02-18 14:22] LABS: ALT 14 U/L (4-34); AST 22 U/L (14-36); African American GFR (CKD) >90 (>60 ml/min/1.73 sqM); Albumin 4.6 g/dL (3.5-5.0); Alkaline Phosphatase 60 U/L (38-126); Anion Gap 9 mmol/L; Blood Urea Nitrogen 8 mg/dL (7-17); Calcium 9.7 mg/dL (8.4-10.2); Carbon Dioxide 27 mmol/L (22-30); Chloride 101 mmol/L (98-107); Glucose 86 mg/dL (74-99); Non-African American GFR(CKD) >90 (>60 ml/min/1.73 sqM); Potassium 4.1 mmol/L (3.5-5.1); Sodium 137 mmol/L (137-145); Total Bilirubin 1.1 mg/dL (0.2-1.3); Total Protein 7.5 g/dL (6.3-8.2)
--- NOTE | 2024-02-18 14:36 | P.MDCNMH ---
History of Present Illness H&P Date: 02/18/24 History of present illness; patient 28-year-old lady with past medical history significant for depression who presented to the ER for suicidal ideations. Patient stated that she was following up outpatient with her PCP and they started her on Zoloft. Patient stated that over the weekend she was having thoughts of hurting herself, patient had no specific plan but stated she was looking at the car and was wondering how slow they were driving and was having thoughts of stepping into them. Patient denies any auditory hallucinations. Patient did reach out to [facility] and to her PCP because of the symptoms, patient came to the ER. Initial lab work done in the ER showed WBC 6.1, hemoglobin 14.1, platelet count 268, sodium 137, potassium 4.1, BUN 8, creatinine 0.58, UA negative for any infection Urine drug screen was negative COVID-19 was negative Patient admitted to psychiatry. REVIEW OF SYSTEMS: CONSTITUTIONAL: No fever, no malaise, no fatigue. HEENT: No recent visual problems or hearing problems. Denied any sore throat. CARDIOVASCULAR: No chest pain, orthopnea, PND, no palpitations, no syncope. PULMONARY: No shortness of breath, no cough, no hemoptysis. GASTROINTESTINAL: No diarrhea, no nausea, no vomiting, no abdominal pain. NEUROLOGICAL: No headaches, no weakness, no numbness. HEMATOLOGICAL: Denies any bleeding or petechiae. GENITOURINARY: Denies any burning micturition, frequency, or urgency. MUSCULOSKELETAL/RHEUMATOLOGICAL: Denies any joint pain, swelling, or any muscle pain. ENDOCRINE: Denies any polyuria or polydipsia. The rest of the 14-point review of systems is negative. PHYSICAL EXAMINATION: GENERAL: The patient is alert and oriented x3, not in any acute distress. Well developed, well nourished. HEENT: Pupils are round and equally reacting to light. EOMI. No scleral icterus. No conjunctival pallor. Normocephalic, atraumatic. No pharyngeal erythema. No thyromegaly. CARDIOVASCULAR: S1 and S2 present. No murmurs, rubs, or gallops. PULMONARY: Chest is clear to auscultation, no wheezing or crackles. ABDOMEN: Soft, nontender, nondistended, normoactive bowel sounds. No palpable organomegaly. MUSCULOSKELETAL: No joint swelling or deformity. EXTREMITIES: No cyanosis, clubbing, or pedal edema. NEUROLOGICAL: Gross neurological examination did not reveal any focal deficits. SKIN: No rashes. Assessment and plan Major depression Serial ideations Bipolar disorder Panic disorder Monitor vital signs Precaution Elopement precautions Continue psych meds per psychiatry team Labs and medication were reviewed.. Continue same treatment. Continue with symptomatic treatment. Resume home medication. Monitor labs and vitals. DVT and GI prophylaxis. Further recommendations as per clinical course of the patient Dictation was produced using [employer] dictation software. please excuse any grammatical, word or spelling errors. Past Medical History Past Medical History: No Reported History Additional Past Medical History / Comment(s): Past [employer]ST [employer] history: Chlamydia was treated in 2013. She has no other history of STDs. History of Any Multi-Drug Resistant Organisms: None Reported Past Surgical History: Tubal Ligation Additional Past Surgical History / Comment(s): Rhinoplasty for deviated septum. Past Psychological History: Depression Smoking Status: Current every day smoker, Vaper Past Alcohol Use History: Occasional Past Drug Use History: None Reported Additional Drug Use History / Comment(s): Pt reports drinking 5-6 drinks 3- 4xweekly - Past Family History Father Family Medical History: Diabetes Mellitus Aunt Family Medical History: Cancer Additional Family Medical History / Comment(s): Breast cancer Medications and Allergies Home Medications Medication Instructions Recorded Confirmed Type valACYclovir HCL [Valtrex] 2,000 mg PO Q12H PRN 01/25/22 02/17/24 History Cephalexin [Keflex] 500 mg PO Q6H PRN 02/17/24 02/17/24 History LORazepam 0.5 mg PO BID PRN 02/17/24 02/17/24 History Sertraline [Zoloft] 25 mg PO DAILY 02/17/24 02/17/24 History Allergies Allergy/AdvReac Type Severity Reaction Status Date / Time amphetamine [From Adderall] AdvReac Rapid Verified 02/17/24 21:33 Heart Rate dextroamphetamine AdvReac Rapid Verified 02/17/24 21:33 [From Adderall] Heart Rate Physical Exam Vitals: Vital Signs Temp Pulse Resp BP Pulse Ox 02/18/24 09:03 83 111/75 02/17/24 22:43 97.5 F L 57 L 14 109/68 99 Intake and Output 02/17/24 02/18/24 02/18/24 22:59 06:59 14:59 Other: Weight 74.843 kg Cranial Nerve Examination - Cranial Nerves Cranial Nerve II- Optic: Intact (Cranial nerves 2-12 intact) Cranial Nerve III- Oculomotor: Intact Cranial Nerve IV- Trochlear: Intact Cranial Nerve V- Trigeminal: Intact Cranial Nerve - Abducens: Intact Cranial Nerve VII- Facial: Intact Cranial Nerve VIII- Auditory: Intact Cranial Nerve IX- Glossopharyngeal: Intact Cranial Nerve X- Vagus: Intact Cranial Nerve XI- Accessory: Intact Cranial Nerve XII- Hypoglossal: Intact Results CBC & Chem 7: 02/18/24 13:02 02/18/24 13:02
[2024-02-18] MEDS: NICOTINE GUM (POLACRILEX) 2 MG GUM BUCCAL PRN (18:22)
[2024-02-18 19:11] LABS: Chol/HDL Ratio 2.23 Ratio; LDL Cholesterol,Calculated 98.1 mg/dL (0.0-131.0)
[2024-02-18] MEDS: QUEtiapine 50 MG TAB PO SCH (20:02)
[2024-02-19] MEDS: DULoxetine HCL 20 MG CAPSULE.DR PO SCH (08:38)
[2024-02-19] MEDS: NICOTINE 21MG/24HR PATCH TRANSDERM SCH (08:38)
--- NOTE | 2024-02-19 11:43 | P.PN ---
Progress Note - Text Progress Note Date: 02/19/24 Interval History: Patient was seen in group and was directable and agreeable to speak with check writer salesperson in the office. Patient stated that she is feeling a bit better today. Initially this morning, she claims that she was quite irritable, however, she took her morning medication, and feels much better now. She is attending groups, and states she slept ok last night. Resort Manager offered melatonin to help with sleep, patient agreeable. Her appetite is doing good. Patient states that she feels that the seroquel is a little high for her, check writer salesperson spoke with her about decreasing her dose, patient agreeable. Patient states that she is feeling quite anxious today. At this time patient denies any suicidal or homicidal ideations, intent or plan. Patient denies any auditory, visual hallucinations and denies any paranoia or delusions. Patient denies any side effects from the medications and has been compliant with meds. MENTAL STATUS EXAM: General Appearance: Patient appears to be stated age is alert, directable, and attempts to cooperate. Patient appears to have fair hygiene and grooming. Dressed casually, longer hair, wearing glasses. Behavior: Patient is seated without any agitated behavior. Speech: Patient's speech is fluent and nonpressured. Mood/Affect: Patient reports their mood is anxious, affect is congruent and constricted. improving mildly Suicidality/Homicidality: Patient denies having any homicidal ideation intent or plan. Denies suicidal ideations intent or plan Perceptions: Patient denies any visual hallucinations and denies any auditory hallucinations Though content/process: There is no evidence of any delusional thought content and thought process is linear and goal-directed. Memory and concentration: AOX3, grossly intact for the purposes of this session. Judgment and insight: improving mildly IMPRESSIONS: bipolar disorder, currently episode depressed panic disorder nicotine dependance PLAN: -Patient is admitted under voluntary status to [facility]HU for stabilization of psychiatric symptoms and safety. -Medications : decrease Seroquel 25mg qhs for mood stabilization, Cymbalta 20mg daily for depression/anxiety, add melatonin 10mg qhs prn for sleep. -Ativan and Haldol PRN for agitation/aggression -NRT - nicotine patch -SW on board for discharge planning. Encourage patient to participate in groups to work on coping skills. Will consider discharge early next week, once patient is stable.
[2024-02-19] MEDS: MELATONIN 5 MG TABLET PO SCH (20:32)
[2024-02-19] MEDS: QUEtiapine 25 MG TAB PO SCH (20:32)
--- NOTE | 2024-02-20 12:10 | P.PN ---
Progress Note - Text Progress Note Date: 02/20/24 Interval History: Patient was seen in group and was directable and agreeable to speak with filing writer in the office. Patient stated that she is feeling a lot better today. She states that overall, she feels comfortable being discharged, and not needing a constant watching eye on her to keep her safe. She is attending groups, and states she slept ok last night. Patient claims she had a small amount of anxiety last night, however, it dissipated quickly. She is happy with her dose of melatonin, and states it worked well to help her to sleep. Her appetite is doing good. At this time patient denies any suicidal or homicidal ideations, intent or plan. Patient denies any auditory, visual hallucinations and denies any paranoia or delusions. Patient denies any side effects from the medications and has been compliant with meds. MENTAL STATUS EXAM: General Appearance: Patient appears to be stated age is alert, directable, and attempts to cooperate. Patient appears to have fair hygiene and grooming. Dressed casually, longer hair, wearing glasses. Behavior: Patient is seated without any agitated behavior. Speech: Patient's speech is fluent and nonpressured. Mood/Affect: Patient reports their mood is a lot better, affect is congruent and constricted. improving Suicidality/Homicidality: Patient denies having any homicidal ideation intent or plan. Denies suicidal ideations intent or plan Perceptions: Patient denies any visual hallucinations and denies any auditory hallucinations Though content/process: There is no evidence of any delusional thought content and thought process is linear and goal-directed. Memory and concentration: AOX3, grossly intact for the purposes of this session. Judgment and insight: improving IMPRESSIONS: bipolar disorder, currently episode depressed panic disorder nicotine dependance PLAN: -Patient is admitted under voluntary status to [facility]HU for stabilization of psychiatric symptoms and safety. -Medications : Seroquel 25mg qhs for mood stabilization, change Cymbalta 20mg qhs for depression/anxiety, melatonin 10mg qhs prn for sleep. -Ativan and Haldol PRN for agitation/aggression -NRT - nicotine patch -SW on board for discharge planning. Encourage patient to participate in groups to work on coping skills. Probable discharge tomorrow.
[2024-02-20] MEDS: NICOTINE 14MG/24HR PATCH TRANSDERM SCH (12:32)
[2024-02-20] MEDS: DULoxetine HCL 20 MG CAPSULE.DR PO SCH (20:37)
--- NOTE | 2024-02-21 10:27 | P.DS ---
Providers Date of admission: 02/17/24 21:06 Expected date of discharge: 02/21/24 Attending physician: Alejandro Ravi MD Consults: 02/17/24 21:23 Consult Physician Routine Consulting Provider: Carlos Paige Consult Reason/Comments: H&P and medical Do you want consulting provider notified?: Yes Primary care physician: Alejandro Joshi - Discharge Diagnosis(es) (1) Bipolar disorder current episode depressed Current Visit: Yes Status: Acute Priority: High (2) Panic disorder Current Visit: Yes Status: Acute Priority: Medium (3) Nicotine dependence Current Visit: Yes Status: Acute Priority: Low Hospital Course: Admission HPI: Admission note was completed by automatic typewriter inspector "Patient presented to the hospital on 02/16. As per EPS note, "Cl sitting in bed A/O x4 brought self in due to increased manic symptoms, SI w increased thoughts of plans. Cl reports they have struggled with periods like this since their teen years and that things have been progressively getteing worse. Cl reports reaching out to PCP and [facility] to get help, and as recent as today speaking with [facility] regarding not feeling safe and concerned about where their mental health was headed. 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 Cl states " The reason I haven't done anything is because I don't want to do that to my Mom. She always tells me I am the best decision she ever made, and I think well what if your best decision doesn't feel like they should be here, alive." Cl reports having intrusive thoughts at times, or "disassociating to the point where I couldn't tell you what I did at work." Cl also discussed when "the manic" subsides they experience loss of interest, hypersomnia, depression, loss of energy, motivation, and crying spells. Judgement/insight/impulse control : fair. ADLS: fair to good Sleep/Yosi: poor/fair Medical issues: none reported Medications: previously on Zoloft but doesn't feel it was helping. Hx of MH tx: open with [facility] intake only. Hx of in pat: INITIAL Hx of SYD: Cl reports increased alcohol use and occasional THC. Hx of in pat rehab: none reported. Fam hx: Maternal: depression/anxiety Paternal: unknown. Hx of trauma: none reported. Hx of legal: none current. Denies HI/DARRON/DEL". Today, patient states she felt that she was having a major panic attack, and the suicidal thoughts were flooding in. She states that she has had these problems since she has been 16 years old. She states that she is always having anxiety. She has panic attacks once a month, or every other month. She states that that she was having side effects from the Zoloft. She states that the suicidal thoughts come and go, and she has thought about running her car into a utility pole, or stepping out into traffic. She has has poor concentration. States that she does not have a regular sleep pattern, and will sometimes stay up all night, and the entire next day, or only sleep a couple hours. She claims her appetite is hit or miss, not very well. She claims to have not slept well in the past several weeks. States she has manic episodes that include sleeplessness, over spending, and sexual episodes. Patient endorses suicidal ideations, denies homicidal ideations intent or plan. At this time patient denies any auditory or visual hallucinations. Patient denies any flight of ideas racing thoughts and increased in goal directed behavior. Patient admits to using a Vape." Hospital course: Upon admission to the unit patient was directable and agreeable to commence treatment and signed adult voluntary form. Patient got along well with other patients on the unit and followed unit protocol. Patient was compliant with the medications and denied any side effects throughout hospital course. Patient was started on Seroquel 25 mg nightly for mood stabilization, Cymbalta 20 mg nightly for depression/anxiety, melatonin 10 mg nightly for sleep. Patient spoke of her stressors and engaged in therapy both group and individual. Patient was also seen by medical team for history and physical exam. Throughout the course of the hospitalization patient gradually improved with regards to mood, anxiety, mood lability, sleep and became more future oriented with improved insight and judgment. On the day of discharge patient denied any suicidal or homicidal ideations intent or plan denied any auditory or visual hallucinations. Patient endorsed wanting to live for her health and her future. The patient denied any access to guns or weapons. Patient denied any paranoia and did not endorse any delusions. Patient does not have a significant history of substance abuse and was counseled on abstaining from all substances including alcohol and marijuana. Patient was also counseled on the medications and need for regular compliance and was encouraged to follow-up with their outpatient appointment for mental health and also for primary care. Prior to discharge a family meeting will be arranged by social staff worker to answer any questions and ensure safety upon discharge. Will be discharged back home today. Mental status exam: General Appearance: Patient appears to be thin, dark hair, wearing glasses, stated age is alert, pleasant, and cooperative. Patient is in no acute distress and has improved hygiene and grooming Behavior: Patient is calmly seated without any agitated behavior. Speech: Patient's speech is fluent and nonpressured. Mood/Affect: Patient reports their mood is "good", affect is congruent and euthymic. Suicidality/Homicidality: Patient denies having any suicidal or homicidal ideation intent or plan. Perceptions: Patient denies any auditory or visual hallucinations. Though content/process: There is no evidence of any delusional thought content and thought process is linear and goal-directed. More future oriented Memory and concentration: AOX3, grossly intact for the purposes of this session. Can spell "WORLD" backwards correctly. Judgment and insight: improved with guarded prognosis Impression: bipolar disorder, currently episode depressed panic disorder nicotine dependance Plan: -Continue with discharge today as patient has improved and stabilized psychiatrically and is not currently an imminent threat to herself and/or others. -Continue medications: Seroquel 25 mg nightly for mood stabilization, Cymbalta 20 mg nightly for depression/anxiety, melatonin 10 mg nightly for sleep. -Patient was counseled on the need for medication compliance and appropriate follow-up at mental health and also primary care for medical issues. Patient verbalized understanding and agreed. -Social work to arrange for and conduct family meeting to ensure safety upon discharge and answer any questions/concerns. Social work also to arrange for patients follow up appointments for psychiatric care along with follow up with primary care provider. -Patient counseled on abstaining from recreational drugs and marijuana and alcohol. Was informed/educated on the adverse effects on their physical and mental health. Patient verbally agreed and understood. -Patient was instructed to return to the hospital or seek immediate medical care if their psychiatric or medical symptoms do worsen or reoccur. Allergies Allergy/AdvReac Type Severity Reaction Status Date / Time amphetamine from Adderall AdvReac Rapid Verified 02/17/24 21:33 Heart Rate dextroamphetamine AdvReac Rapid Verified 02/17/24 21:33 From Adderall Heart Rate Laboratory Results WBC 6.1 k/uL (3.8-10.6) 02/18/24 13:02 RBC 4.47 m/uL (3.80-5.40) 02/18/24 13:02 Hgb 14.1 gm/dL (11.4-16.0) 02/18/24 13:02 Hct 43.9 % (34.0-46.0) 02/18/24 13:02 MCV 98.1 fL (80.0-100.0) 02/18/24 13:02 MCH 31.4 pg (25.0-35.0) 02/18/24 13:02 MCHC 32.0 g/dL (31.0-37.0) 02/18/24 13:02 RDW 12.5 % (11.5-15.5) 02/18/24 13:02 Plt Count 268 k/uL (150-450) 02/18/24 13:02 MPV 9.1 02/18/24 13:02 Neutrophils % 58 % 02/18/24 13:02 Lymphocytes % 31 % 02/18/24 13:02 Monocytes % 6 % 02/18/24 13:02 Eosinophils % 3 % 02/18/24 13:02 Basophils % 1 % 02/18/24 13:02 Neutrophils # 3.5 k/uL (1.3-7.7) 02/18/24 13:02 Lymphocytes # 1.9 k/uL (1.0-4.8) 02/18/24 13:02 Monocytes # 0.4 k/uL (0-1.0) 02/18/24 13:02 Eosinophils # 0.2 k/uL (0-0.7) 02/18/24 13:02 Basophils # 0.0 k/uL (0-0.2) 02/18/24 13:02 Sodium 137 mmol/L (137-145) 02/18/24 13:02 Potassium 4.1 mmol/L (3.5-5.1) 02/18/24 13:02 Chloride 101 mmol/L (98-107) 02/18/24 13:02 Carbon Dioxide 27 mmol/L (22-30) 02/18/24 13:02 Anion Gap 9 mmol/L 02/18/24 13:02 BUN 8 mg/dL (7-17) 02/18/24 13:02 Creatinine 0.58 mg/dL (0.52-1.04) 02/18/24 13:02 Est GFR (CKD-EPI)AfAm >90 (>60 ml/min/1.73 sqM) 02/18/24 13:02 Est GFR (CKD-EPI)NonAf >90 (>60 ml/min/1.73 sqM) 02/18/24 13:02 Glucose 86 mg/dL (74-99) 02/18/24 13:[address] Glu mg/dL 97 mg/dL 02/18/24 13:02 Hemoglobin A1c 5.0 % (<=6.0) 02/18/24 13:02 Calcium 9.7 mg/dL (8.4-10.2) 02/18/24 13:02 Total Bilirubin 1.1 mg/dL (0.2-1.3) 02/18/24 13:02 AST 22 U/L (14-36) 02/18/24 13:02 ALT 14 U/L (4-34) 02/18/24 13:02 Alkaline Phosphatase 60 U/L (38-126) 02/18/24 13:02 Total Protein 7.5 g/dL (6.3-8.2) 02/18/24 13:02 Albumin 4.6 g/dL (3.5-5.0) 02/18/24 13:02 Triglycerides 105.00 mg/dL (0.00-149.00) 02/18/24 13:02 Cholesterol 216.00 mg/dL (0.00-200.00) H 02/18/24 13:02 LDL Cholesterol, Calc 98.1 mg/dL (0.0-131.0) 02/18/24 13:02 VLDL Cholesterol, Calc 21.00 mg/dL (5.00-40.00) 02/18/24 13:02 HDL Cholesterol 96.90 mg/dL (40.00-60.00) H 02/18/24 13:02 Cholesterol/HDL Ratio 2.23 Ratio 02/18/24 13:02 TSH 1.330 mIU/L (0.465-4.680) 02/18/24 13:02 Urine Color Colorless 02/17/24 21:35 Urine Appearance Clear (Clear) 02/17/24 21:35 Urine pH 5.0 (5.0-8.0) 02/17/24 21:35 Ur Specific [place] 1.007 (1.001-1.035) 02/17/24 21:35 Urine Protein Negative (Negative) 02/17/24 21:35 Urine Glucose (UA) Negative (Negative) 02/17/24 21:35 Urine Ketones Negative (Negative) 02/17/24 21:35 Urine Blood Negative (Negative) 02/17/24 21:35 Urine Nitrite Negative (Negative) 02/17/24 21:35 Urine Bilirubin Negative (Negative) 02/17/24 21:35 Urine Urobilinogen <2.0 mg/dL (<2.0) 02/17/24 21:35 Ur Leukocyte Esterase Negative (Negative) 02/17/24 21:35 Urine HCG, Qual Not Detected (Not Detectd) 02/17/24 21:35 Urine Opiates Screen Not Detected (NotDetected) 02/17/24 15:24 Ur Oxycodone Screen Not Detected (NotDetected) 02/17/24 15:24 Urine Methadone Screen Not Detected (NotDetected) 02/17/24 15:24 Ur Barbiturates Screen Not Detected (NotDetected) 02/17/24 15:24 U Tricyclic Antidepress Not Detected (NotDetected) 02/17/24 15:24 Ur Phencyclidine Scrn Not Detected (NotDetected) 02/17/24 15:24 Ur Amphetamines Screen Not Detected (NotDetected) 02/17/24 15:24 U Methamphetamines Scrn Not Detected (NotDetected) 02/17/24 15:24 U Benzodiazepines Scrn Not Detected (NotDetected) 06/17/24 15:24 Urine Cocaine Screen Not Detected (NotDetected) 02/17/24 15:24 U Marijuana (THC) Screen Not Detected (NotDetected) 02/17/24 15:24 SARS-CoV-2 (PCR) Not Detected (Not Detectd) 02/17/24 17:24 Vital Signs Temp 97.6 F 02/21/24 06:46 Pulse 98 02/21/24 06:46 Resp 18 02/21/24 06:46 BP 111/70 02/21/24 06:46 Pulse Ox 98 02/21/24 06:46 FiO2 Patient Condition at Discharge: Stable Plan - Discharge Summary Discharge Rx Participant: Yes New Discharge Prescriptions: New QUEtiapine [SEROquel] 25 mg PO HS 30 Days #30 tab DULoxetine HCL [Cymbalta] 20 mg PO HS 30 Days #30 cap Nicotine 14Mg/24Hr Patch [Habitrol] 1 patch TRANSDERM DAILY 14 Days #14 patch Melatonin 10 mg PO HS 30 Days #60 tab Continue valACYclovir HCL [Valtrex] 2,000 mg PO Q12H PRN PRN Reason: Cold Sores Discontinued Sertraline [Zoloft] 25 mg PO DAILY Cephalexin [Keflex] 500 mg PO Q6H PRN PRN Reason: piercing infection LORazepam 0.5 mg PO BID PRN PRN Reason: Anxiety Discharge Medication List valACYclovir HCL [Valtrex] 2,000 mg PO Q12H PRN 01/25/22 [History] DULoxetine HCL [Cymbalta] 20 mg PO HS 30 Days #30 cap 02/21/24 [Rx] Melatonin 10 mg PO HS 30 Days #60 tab 02/21/24 [Rx] Nicotine 14Mg/24Hr Patch [Habitrol] 1 patch TRANSDERM DAILY 14 Days #14 patch 0 02/21/24 [Rx] QUEtiapine [SEROquel] 25 mg PO HS 30 Days #30 tab 02/21/24 [Rx] Follow up Appointment(s)/Referral(s): [facility] [Outside] - 02/25/24 8:00 am (02/25/2024 8:00AM - 9:00AM [facility]ECK 02/26/2024 10:30AM - 11:30AM JYOTI AVENDAÑO ) Alejandro Joshi DO [Primary Care Provider] - 1-2 days Patient Instructions/Handouts: How to Stop Smoking (DC), Bipolar Disorder (DC), Panic Attack (GEN) Activity/Diet/Wound Care/Special Instructions: Avoid the use of street drugs and alcohol. Take all medications as prescribed. When you are in need of refills on your medications, please contact your medical provider and/or outpatient psychiatrist/provider to have this done. Please go to your scheduled outpatient appointment for aftercare treatment. If symptoms return or become worse, call the crisis line at and/or go to the nearest emergency room for evaluation. National Suicide Hotline 988 Discharge Disposition: HOME SELF-CARE
[2024-02-23 03:33] VITALS: BP 111/70; PULSE 98; RESP 18; TEMP 97.6
== END 2024-02-21 12:45 | disposition home or self-care (01) | DRG 885 ==
LOC: EC 13:03 → 3MHU 21:06
PROVIDERS: ADMIT Psychiatry & Neurology Psychiatry; ATTEND Psychiatry & Neurology Psychiatry
DX: F31.30 Bipolar disorder, current episode depressed, mild or moderate severity, unspecified (principal); R45.851 Suicidal ideations; F17.290 Nicotine dependence, other tobacco product, uncomplicated; F41.0 Panic disorder [episodic paroxysmal anxiety]; Z79.899 Other long term (current) drug therapy; Z11.52 Encounter for screening for COVID-19; Z28.21 Immunization not carried out because of patient refusal; Z71.89 Other specified counseling; Z88.8 Allergy status to other drugs, medicaments and biological substances
CPT/HCPCS: 80053; 80061; 80306; 81003; 81025; 82075; 83036; 84443; 85025; 87635; 99285